=== PATIENT | female | born 1990 | race Caucasian/White ===

== ENCOUNTER 2020-07-30 17:54 | Emergency (ER) | payer OTHER, SELFPAY ==
[2020-07-30 18:40] VITALS: BP 105/76; PULSE 78; RESP 20; TEMP 36.8; O2SAT 98; BMI 30.7
== END 2020-07-30 19:40 | disposition left against medical advice (07) ==
PROVIDERS: Emergency Provider Emergency Medicine; PCP Family Medicine
DX: T40.2X1A Poisoning by other opioids, accidental (unintentional), initial encounter (principal); Y92.9 Unspecified place or not applicable
CPT/HCPCS: 99281; 99282